=== PATIENT | male | born 1985 | race Caucasian/White ===

== ENCOUNTER 2024-05-15 20:49 | Emergency (ER) | payer SELFPAY ==
[~2024-05-15] VITALS: Ht 167.6 cm; Wt 73.0 kg
[2024-05-15 20:57] VITALS: BP 127/76; PULSE 119; RESP 17; TEMP 98.8; O2SAT 99
[2024-05-15] MEDS: TETANUS, DIPHTHERIA, PERTUSSIS VAC/PF 0.5ML (>10YR OLD) IM ONE (22:00)
[2024-05-15] MEDS ORDERED: MIDAZOLAM HCL 2 MG/2 ML VIAL IM ONE (22:15)
== END 2024-05-16 00:54 | disposition home or self-care (01) ==
LOC: ER 20:49
DX: S00.31XA Abrasion of nose, initial encounter (principal); F10.129 Alcohol abuse with intoxication, unspecified; G31.89 Other specified degenerative diseases of nervous system; W01.0XXA Fall on same level from slipping, tripping and stumbling without subsequent striking against object, initial encounter; Y93.89 Activity, other specified; Y92.89 Other specified places as the place of occurrence of the external cause; Y99.8 Other external cause status
CPT/HCPCS: 70486; 90471; 90715; 99285